=== PATIENT | female | born 1935 | race Caucasian/White ===

== ENCOUNTER 2018-09-26 19:52 | Emergency (ER) | payer OTHER ==
[2018-09-27] MEDS: KETOROLAC 15 MG INJ IM (02:07)
== END 2018-09-27 04:03 | disposition home or self-care (01) ==
LOC: E/R 19:52
DX: M54.2 Cervicalgia (principal); I10 Essential (primary) hypertension; J44.9 Chronic obstructive pulmonary disease, unspecified; Z79.891 Long term (current) use of opiate analgesic
CPT/HCPCS: 72050; 96372; 99284-25